=== PATIENT | male | born 1970 | race Caucasian/White ===

== ENCOUNTER 2017-01-07 01:16 | Emergency (ER) | payer OTHER ==
[~2017-01-07] VITALS: Ht 177.8 cm; Wt 158.8 kg
[2017-01-07 01:26] VITALS: BP 159/95
[2017-01-07] MEDS ORDERED: BUPIVACAINE 0.5 % PF 150 MG/30 ML VIAL ONE (02:27)
[2017-01-07] MEDS ORDERED: BUPIVACAINE 0.5 % PF 150 MG/30 ML VIAL IJ ONE (02:30)
[2017-01-07] MEDS ORDERED: SULFAMETH/TRIMETH 800/160 MG 1 UDTAB TABLET PO ONE ×2 (03:00→03:09)
[2017-01-07] MEDS ORDERED: CEPHALEXIN MONOHYDRATE 500 MG CAPSULE PO ONE ×2 (03:00→03:08)
== END 2017-01-07 03:26 | disposition home or self-care (01) ==
LOC: ER 01:21
DX: S39.012A Strain of muscle, fascia and tendon of lower back, initial encounter (principal); E11.9 Type 2 diabetes mellitus without complications; I10 Essential (primary) hypertension; X58.XXXA Exposure to other specified factors, initial encounter; Y92.89 Other specified places as the place of occurrence of the external cause; Y93.89 Activity, other specified; Y99.8 Other external cause status
CPT/HCPCS: 20552; 82962; 99284; A4606; A6402; J3490; Z7610

== ENCOUNTER 2017-01-19 09:59 | Emergency (ER) | payer OTHER ==
[~2017-01-19] VITALS: Ht 177.8 cm; Wt 172.4 kg
--- NOTE | 2017-01-19 10:30 | NUR ---
PATIENT PRESENTS TO ER C/O PAIN AND BLOOD UPON URINATION. PATIENT IS A/OX 4. BREATHIKNG EVEN AND UNLABORED ON ROOM AIR. NO SOB. NO DISTRESS. PATIENT'S VITALS STABLE. SAFETY AND COMFORT MEASURES IN PLACE. AWAITING MD ORDERS.
--- NOTE | 2017-01-19 10:35 | NUR ---
URINE OBTAINED AND SENT TO LAB.
[2017-01-19 11:02] LABS: CREATININE 0.9 mg/dL (0.6-1.3); POTASSIUM 3.7 mmol/L (3.5-5.1)
--- NOTE | 2017-01-19 11:02 | NUR ---
PATIENT MEDICATED PER MD ORDERS.
[2017-01-19 11:06] LABS: BASOPHILS % (AUTO) 0.4 % (0.0-2.0); EOSINOPHILS # (AUTO) 0.1 /CMM (0.0-0.7); EOSINOPHILS % (AUTO) 0.7 % (0.0-6.0); HEMATOCRIT 52 % (39-51); HEMOGLOBIN 16.8 g/dL (13.5-17.5); LYMPHOCYTES % (AUTO) 11.5 % (20.0-44.0); MEAN CORPUSCULAR HEMOGLOBIN 30 PG (26.0-33.0); MEAN CORPUSCULAR HGB CONC 33 g/dl (31.0-36.0); MEAN CORPUSCULAR VOLUME 92 fL (80-96); MONOCYTES # (AUTO) 0.7 /CMM (0.1-1.30); MONOCYTES % (AUTO) 8.7 % (2.0-12.0); NEUTROPHILS # (AUTO) 6.7 /CMM (1.8-8.9); NEUTROPHILS % (AUTO) 78.7 % (43.0-81.0); PLATELET COUNT (AUTO) 259 /CMM (150-450); RDW COEFFICIENT OF VARIATION 12.9 (11.5-15.0); RED BLOOD CELL COUNT(AUTO) 5.64 MIL/uL (4.5-6.0); WHITE BLOOD COUNT (AUTO) 8.6 K/uL (4.3-11.0)
[2017-01-19 11:16] LABS: APPEARANCE,URINE TURBID (CLEAR); BILIRUBIN,URINE 1+ (NEGATIVE); BLOOD, URINE 3+ Ery/uL (NEGATIVE); KETONES,URINE TRACE (NEGATIVE); LEUKOCYTE ESTERASE ,URINE NEGATIVE (NEGATIVE); NITRITE, URINE POSITIVE (NEGATIVE); PH,URINE 6.5 (5.0-8.0); PROTEIN,URINE 3+ mg/dl (NEGATIVE); UGLUCOSE 2+ mg/dL (NEGATIVE)
[2017-01-19 11:17] LABS: COLOR,URINE AMBER (YELLOW)
[2017-01-19 11:21] LABS: BACTERIA,URINE Rare /HPF (None Seen); MUCUS,URINE Few /LPF (None Seen); RBC,URINE TOO NUMEROUS TO COUN /HPF (0-2); SQUAMOUS EPITHELIAL CELL,UR 0-2 /HPF (None Seen); URINE AMORPHOUS URATE Few /HPF (None Seen)
--- NOTE | 2017-01-19 11:40 | NUR ---
PATIENT TAKEN TO CT
--- NOTE | 2017-01-19 11:55 | NUR ---
PATIENT RETURNED FROM CT IN STABLE CONDITION.
--- NOTE | 2017-01-19 12:03 | NUR ---
ORDERED [employer] FOR PT
--- NOTE | 2017-01-19 12:53 | NUR ---
CALLED JACQUELIN TURNER AT [phone], SPOKE WITH FELIPE, SHE SAID JACQUELIN TURNER IS NOT IN THE OFFICE RIGHT NOW AND DOES NOT HAVE A PAGER, SHE SAID TO CALL BACK AT [phone]
[2017-01-19 13:19] VITALS: BP 148/92
--- NOTE | 2017-01-19 13:20 | NUR ---
Patient discharged to home in stable condition. Written and verbal after care instructions given. Patient verbalizes understanding of instruction.
== END 2017-01-19 13:20 | disposition home or self-care (01) ==
LOC: ER 10:00
DX: N39.0 Urinary tract infection, site not specified (principal); I10 Essential (primary) hypertension; E11.9 Type 2 diabetes mellitus without complications
CPT/HCPCS: 36415; 74176; 80048; 81001; 85025; 87086; 96372; 99285; A4606; J1885; Z7610; 71250-TC; 81000-TC

== ENCOUNTER 2022-01-30 19:42 | Emergency (ER) | payer OTHER ==
[~2022-01-30] VITALS: Ht 180.3 cm; Wt 254.5 kg
--- NOTE | 2022-01-30 19:42 | NUR ---
[id number] THIS 51YO MALE PATIENT ASYSTOLE, WITH CONTINUOUS CPR AND AMBUBAGGING AT 15LPM. PATIENT HAS PERIPHERAL LINE ON LEFT AC G18. PER PARAMEDICS. PATIENT WAS COMPLAINING OF SOB AND HAS OXYGEN INH VIA NC AT 5LPM AT HOME. PATIENT BECAME TACHYPNIC WHILE THEY ARE TRANSFERING HIM TO THE AMBULANCE. ON THE WAY TO HOSPITAL PATIENT TURNED BLUE AND BECAME PULSELESS. CPR AND AMBUBAGGING AT 15LPM. PER CYCLING INSTRUCTOR, THEY GAVE 1x SHOCK TO PATIENT AND 1 EPINEPHRINE. PLACED ON BED 5
--- NOTE | 2022-01-30 19:43 | NUR ---
SUCTION SECRETIONS DONE. PATIENT ON CONTINUOUS CPR, WITH DR AMADOR PICK PULLING MACHINE TENDER, RT FOR CPR AND AMBUBAGGING, DANISH KATZ FOR MEDICINE. DANISH COOK FOR RECORDING.
--- NOTE | 2022-01-30 19:45 | NUR ---
ASYSTOLE, 1 EPINEPHRINE GIVEN IV PUSH.
--- NOTE | 2022-01-30 19:46 | NUR ---
PULSE CHECKED, ASYSTOLE. CPR AND AMBUBAGGING CONTINUED.
[2022-01-30] MEDS ORDERED: EPINEPHRINE (1:10,000) SYRINGE 1 MG/10 ML DISP.SYRIN IVP ONE (19:47)
--- NOTE | 2022-01-30 19:47 | NUR ---
Nohemy fitzgerald in EDM - 01/30/22 at 2016 by BARBARA 2ND EPINEPHRINE GIVEN. PULSE CHECKED, ASYSTOLE. CPR CONTINUED, DR AMADOR ABLE TO PLACE ET TUBE 7.5 THEN ATTACHED TO AMBUBAGGING.
--- NOTE | 2022-01-30 19:48 | NUR ---
2ND EPINEPHRINE GIVEN. PULSE CHECKED, ASYSTOLE. CPR CONTINUED, DR AMADOR ABLE TO PLACE ET TUBE 7.5 THEN ATTACHED TO AMBUBAGGING.
--- NOTE | 2022-01-30 19:51 | NUR ---
3RD EPINEPHRINE GIVEN. PULSE CHECKED, ASYSTOLE. CPR AND AMBUBAGGING CONTINUED. Addendum: 01/30/22 at 2033 by AMYEVARA 3RD EPINEPHRINE GIVEN. PULSE CHECKED, PEA RHYTHM. CPR AND AMBUBAGGING CONTINUED.
--- NOTE | 2022-01-30 19:54 | NUR ---
4TH EPINEPHRINE GIVEN. PULSE CHECKED, ASYSTOLE. CPR AND AMBUBAGGING CONTINUED. Addendum: 01/30/22 at 2034 by AMYEVKYMBERLY 4TH EPINEPHRINE GIVEN. PULSE CHECKED, PEA RHYTHM. CPR AND AMBUBAGGING CONTINUED.
--- NOTE | 2022-01-30 19:57 | NUR ---
5TH EPINEPHRINE GIVEN. PULSE CHECKED, ASYSTOLE. CPR AND AMBUBAGGING CONTINUED.
--- NOTE | 2022-01-30 19:59 | NUR ---
TIME OF PRONOUNCED BY DR AMADOR 1958.
--- NOTE | 2022-01-30 20:04 | NUR ---
Note undone in EDM - 01/30/22 at 2016 by BARBARA [id number] THIS 51YO MALE PATIENT ASYSTOLE, WITH CONTINUOUS CPR AND AMBUBAGGING AT 15LPM. PATIENT HAS PERIPHERAL LINE ON LEFT AC G18. PER PARAMEDICS. PATIENT WAS COMPLAINING OF SOB AND HAS OXYGEN INH VIA NC AT 5LPM AT HOME. PATIENT BECAME TACHYPNIC WHILE THEY ARE TRANSFERING HIM TO THE AMBULANCE. ON THE WAY TO HOSPITAL PATIENT TURNED BLUE AND BECAME PULSELESS. CPR AND AMBUBAGGING AT 15LPM. PER MULTI SLIDE MACHINE TENDER, THEY GAVE 1x SHOCK TO PATIENT AND 1 EPINEPHRINE. PLACED ON BED 5
--- NOTE | 2022-01-30 20:20 | NUR ---
CONTACTED [facility] WITH REGARDS TO PATIENT- NOT ELIGIBLE FOR DONATION ACCORDING TO TIANA RAWLS AND BODY CAN BE RELEASE .
--- NOTE | 2022-01-30 21:04 | NUR ---
[facility]POKE WITH SOFIA #[phone]
--- NOTE | 2022-01-30 21:15 | NUR ---
PT DIYA NOTIFIED OF 'S PASSING.
--- NOTE | 2022-01-31 00:14 | NUR ---
PADILLA (IDANIA) - BROTHER [phone]
--- NOTE | 2022-01-31 00:18 | NUR ---
POST MORTEM CARE DONE. FAMILY IS AWARE THAT PATIENT WILL BE TRANSFER TO THE [facility] [place].
--- NOTE | 2022-01-31 00:54 | NUR ---
PATIENT TRANSFERRED TO [facility] [place]
[2022-01-31 00:56] VITALS: BP 0/0
== END 2022-01-31 00:57 ==
LOC: ER 19:46
DX: I46.9 Cardiac arrest, cause unspecified (principal)
CPT/HCPCS: 99291; 92950 ×2; 31500; J0171